=== PATIENT | female | born 1965 | race African-American/Black ===

== ENCOUNTER → 2016-07-19 | Outpatient (CLI) | payer BC ==
[2015-02-09 23:08] VITALS: BP 151/99
--- NOTE | 2016-07-20 10:41 | MG ---
HISTORY: SCREENING Comparison: March 19, 2014, April 09, 2014, and August 03, 2015 FINDINGS: Bilateral CC and MLO projections of the right and left breast were obtained. Scattered fibroglandul ar tissue is seen to be present. The left breast is mammographically stable. There is possible deve loping asymmetry in the upper-outer quadrant right breast posteriorly best seen on the MLO view for which additional evaluation is recommended.. No skin thickening or nipple retraction is appreciated . No pathological lymphadenopathy can be identified. IMPRESSION: Possible developing asymmetry upper outer posterior right breast for which follow up sp ot compression and ML views are recommended. If the findings persist, targeted sonography is recomme nded. ACR CATEGORY 0 - assessment incomplete; additional imaging recommended. Diagnostic CAD was utilized and reviewed. * 0 (ZERO) - ASSESSMENT INCOMPLETE; ADDITIONAL IMAGING IS NEEDED. * 1/1 (ONE) - NEGATIVE. * 2/II (TWO) - BENIGN FINDINGS. * 3/III (THREE) - PROBABLY BENIGN FINDING; SHORT INTERVAL FOLLOW-UP SUGGESTED. * 4/IV (FOUR) - SUSPICIOUS ABNORMALITY; BIOPSY SHOULD BE CONSIDERED. * 5/V (FIVE) - HIGHLY SUSPICIOUS OF MALIGNANCY; BIOPSY SHOULD BE PERFORMED. A NEGATIVE X-RAY REPORT SHOULD NOT DELAY BIOPSY IF A DOMINANT OR CLINICALLY SUSPICIOUS MASS IS PRESENT; 4 TO 8 PERCENT OF CANCERS ARE NOT IDENTIFIED BY X-RAY. A NEG ATIVE REPORT MAY REINFORCE THE CLINICAL IMPRESSION. ADENOSIS AND DENSE BREASTS MAY OBSCURE AN UNDER LYING NEOPLASM. Reported By:
== END ==
LOC: RAD 13:33
PROVIDERS: ATTEND Nurse Practitioner Family
DX: Z12.31 Encounter for screening mammogram for malignant neoplasm of breast (principal)
CPT/HCPCS: 77067

== ENCOUNTER → 2016-08-10 | Outpatient (CLI) | payer BC ==
[2015-02-09 23:08] VITALS: BP 151/99
--- NOTE | 2016-08-10 15:14 | US ---
HISTORY: Focal asymmetry Diagnostic right mammogram Comparison: July 19, 2016 FINDINGS: A true medial lateral projection of the right breast was obtained as well as spot compression views and exaggerated CC and MLO projection. Focal asymmetry within the superior lateral aspect of the rig ht breast is again observed. This may represent focal glandular tissue or indistinct axillary lymph nodes. Continued evaluation with ultrasound will be performed. IMPRESSION: Focal asymmetry within the superior lateral right breast. The lesion is approximately 1 0 to 12 cm within the right axilla. Targeted ultrasound would be of benefit. Right breast ultrasound: Multiple grayscale and color flow Doppler images of the right breast were obtained in the 9 to 11 o' clock position of the right breast. Bands of glandular tissue are observed without definite mass or cystic lesion identified. Impression: Unremarkable right breast ultrasound ACR CATEGORY: 3 - likely benign findings Followup diagnostic mammogram and ultrasound in 6 months is recommended for further characterization . Diagnostic CAD was utilized and reviewed. * 0 (ZERO) - ASSESSMENT INCOMPLETE; ADDITIONAL IMAGING IS NEEDED. * 1/1 (ONE) - NEGATIVE. * 2/II (TWO) - BENIGN FINDINGS. * 3/III (THREE) - PROBABLY BENIGN FINDING; SHORT INTERVAL FOLLOW-UP SUGGESTED. * 4/IV (FOUR) - SUSPICIOUS ABNORMALITY; BIOPSY SHOULD BE CONSIDERED. * 5/V - HIGHLY SUSPICIOUS OF MALIGNANCY; BIOPSY SHOULD BE PERFORMED. A NEGATIVE X-RAY REPORT SHOULD NOT DELAY BIOPSY IF A DOMINANT OR CLINICALLY SUSPICIOUS MASS IS PRESENT; 4 TO 8 PERCENT OF CANCERS ARE NOT IDENTIFIED BY X-RAY. A NEG ATIVE REPORT MAY REINFORCE THE CLINICAL IMPRESSION. ADENOSIS AND DENSE BREASTS MAY OBSCURE AN UNDER LYING NEOPLASM. Reported By:
== END ==
LOC: RAD 13:48
PROVIDERS: ATTEND Nurse Practitioner Family
DX: R92.8 Other abnormal and inconclusive findings on diagnostic imaging of breast (principal)
CPT/HCPCS: 76642; 77065

== ENCOUNTER → 2016-09-05 | Outpatient (CLI) | payer BC ==
[2015-02-09 23:08] VITALS: BP 151/99
--- NOTE | 2016-09-05 10:09 | US ---
HISTORY: Right upper quadrant pain. Study: Right upper quadrant abdominal ultrasound Comparison: None. Technique: Multiple man scale and color flow Doppler images of the right upper quadrant were obtain ed. Findings: The liver is enlarged to 16.2 cm and demonstrates increased echogenicity consistent with diffuse fat ty infiltration. No focal intraparenchymal mass or intrahepatic biliary ductal dilatation can be ob served. The gallbladder is surgically absent. The common bile duct is unremarkable measuring 7 mm. No obvious fluid within the right upper quadrant. The right kidney appears is small , but without focal parenchymal mass or nephrolithiasis. The righ t kidney measurers 7.3 cm. No hydronephrosis or perirenal fluid can be observed. The pancreatic he ad and body are unremarkable. The pancreatic tail is largely obscured by overlying bowel gas. IMPRESSION: 1. Hepatomegaly and hepatic steatosis. 2. The gallbladder is surgically absent. Reported By:
== END ==
LOC: RAD 09:27
PROVIDERS: ATTEND Nurse Practitioner Family
DX: R10.11 Right upper quadrant pain (principal); R11.0 Nausea; K21.9 Gastro-esophageal reflux disease without esophagitis
CPT/HCPCS: 76705